=== PATIENT | female | born 1930 | race Caucasian/White ===

== ENCOUNTER 2017-01-12 10:34 | Emergency (ER) | payer MEDICARE, BC ==
[2017-01-12 10:45] VITALS: BP 122/71
--- OUTSIDE RECORDS SUMMARY | 2017-01-12 11:26 | XMS REPORT | Continuity of Care Document ---
:1930 Author Organization [facility] ([facility]) Address [place] [address] Phone [phone] Care Team Providers Name Role Phone Provider, No-Primary Care Primary Care Provider Unavailable Source Comments This disclosure is being made pursuant to the Care Everywhere program, applicable federal and state laws, and may not contain all informaitonavailable regarding this patient.[facility] ([facility]) Active Allergies and Adverse Reactions Not on File Current Medications Not on file Active Problems Not on file Social History Tobacco Use Types Packs/Day Years Used Date Never Assessed Plan of Care Health Maintenance Due Date Last Done Comments Hepatitis B Vaccine (1 of 3 - Primary Series) 1930 Tdap Vaccine 1941 Lipid Disorder Screening 1948 Td Vaccine 1948 Zoster Vaccine 1990 Pneumococcal Vaccine (1 of 2 - PCV13) 1995 Influenza Vaccine: Seasonal (#1) 03/26/2016 Results from Last 3 Months Not on file
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
[2017-01-12 11:55] LABS: Urine Bilirubin Negative (NEGATIVE); Urine Blood Negative /ul (NEGATIVE); Urine Ketone Negative (NEGATIVE); Urine Nitrite Negative (NEGATIVE); Urine Protein Negative (NEGATIVE); Urine Urobilinogen Normal (NORMAL)
[2017-01-12 12:06] LABS: Urine Appearance Slightly Cloudy; Urine Bacteria 2+; Urine Color Yellow; Urine RBC None Seen /hpf (0-5); Urine WBC 0-5 /hpf (0-5)
== END 2017-01-12 12:30 | disposition home or self-care (01) ==
LOC: ER 10:34
DX: S00.91XA Abrasion of unspecified part of head, initial encounter (principal); N30.00 Acute cystitis without hematuria; Z85.820 Personal history of malignant melanoma of skin; W19.XXXA Unspecified fall, initial encounter; Z91.81 History of falling; Y93.01 Activity, walking, marching and hiking; Y92.098 Other place in other non-institutional residence as the place of occurrence of the external cause; I10 Essential (primary) hypertension; E78.5 Hyperlipidemia, unspecified

== ENCOUNTER 2017-03-04 14:28 | Inpatient (IN) | payer MEDICARE, BC ==
[2017-03-04 14:57] LABS: Hematocrit 32.3 % (37.0-47.0); Mean Corpuscular Hemoglobin 30.3 pg (27-31); Mean Corpuscular Hgb Conc 34.1 g/dl (32-36); Mean Platelet Volume 9.4 fl (6.0-9.5); Neutrophil # 7.3 K/mm3 (1.3-6.0); Neutrophil % 81.1 % (42-75.0); Platelet Count 292 K/mm3 (150-450); Red Blood Count 3.63 M/mm3 (4.2-5.4); Red Cell Distribution Width 14.9 % (11.5-14.0)
[2017-03-04 15:20] LABS: Albumin * 3.3 gm/dl (3.4-5.0); BUN/Creatinine Ratio 10.5 (9.0-21.6); Bilirubin, Total 2.2 mg/dL (0.0-1.1); Ca. Corrected For Albumin 8.7 mg/dL (8.4-10.2); Calcium * 8.5 mg/dL (7.9-10.9); Carbon Dioxide 27.3 mmol/L (24-32.6); Potassium 4.3 mmol/L (3.4-4.6); Total Protein 6.6 gm/dL (6.2-8.2)
[2017-03-04] MEDS: PANTOPRAZOLE SODIUM 40 MG in NORMAL SALINE 100 ML IV SCH (17:46)
[2017-03-04] MEDS ORDERED: FUROSEMIDE 10 MG/ML VIAL IV ONE (18:00)
[2017-03-04] MEDS ORDERED: SPIRONOLACTONE 25 MG TABLET PO ONE (18:00)
--- NOTE | 2017-03-04 19:35 | HP ---
Chief Complaint - Chief Complaint Date of Service: 03/04/17 Time of Service: 19:35 Chief Complaint: CHF, weakness History of Present Illness: Lucrecia is an 86 year old female patient of Dr. Proctor who presented to her office today with c/o increasing lower extremity edema, swelling in face, anemia , anxiety and depression, atrial fibrillation, HLD, HTN and OA. Patient indicates she has stopped taking all of her prescribed medications. Also concerned about black tarry stools. Patient has a history of a massive GI bleed in 2014 on coumadin and therefore is not a candidate for anticoagulation. Admission labs show hgb 11.0 (was 14.1 10/05/16). normal wbc eith 81.1% neutrophils. Na+ 122. Patient was directly admitted from pcp office for lower extremity edema, hyponatremia, weakness and anemia. 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; 2010 - right arm - nodular basal cell ca removed; basal cell ca also removed from nose - unsure of year, Cataracts - bilat - , Colonoscopy - 2005 - [facility] - normal; 2014 - [place] - sigmoid diverticulosis, EGD - [place] - 11/2014 clotest negative, mod chronic inflammation and fibrosis; 02/2015 clotest negative, chronic gastritis., T & A - 194, Other - right corn toe removal in 1990 Patient History - Other: None LMP (females 10-50): Menopausal - Family History Mother Family History - Medical: - age 74, Arthritis Children Family History - Medical: Diabetes Type 1, Diabetes Type 2 Brother Family History - Medical: - 3 brothers. One as an infant ; one age 50s from heart problems; one age 60 from colon ca and had a colostomy. Family History - Cardiac/Respiratory: Myocardial Infarction Family History - Cancer: Colon Sister Family History - Medical: - 3 sisters - 2 as infants; 1 due to a ruptured appendix. Brother2 Family History - Medical: Other - 2 living brothers - 1 with history CVA and arthritis; 1 with prostate cancer. Family History - Cardiac/Respiratory: CVA/Stroke Family History - Cancer: Prostate sister2 Family History - Medical: Other - 1 living sister with history breast cancer Family History - Cancer: Breast Aunt Family History - Medical: Other - 2 living aunts with history breast cancer Family History - Cancer: Breast Father Family History - Medical: Family History - Cardiac/Respiratory: Myocardial Infarction - age 73 - Social History Living Situations: long-term Abuse History: No History of abuse Psych History: Hx of Anxiety, Hx of Depression Does anyone smoke in the home?: No Smoking Status: Never smoker Have you smoked in the past 12 months: No Alcohol Use: none Drug Use: none Review Of Systems (GEN) - Review of Systems Generalized/Overall Review: Present: Weakness EENTM: Present: No Symptoms Reported Respiratory: Present: No Symptoms Reported Cardiac: Present: Edema. Absent: Chest Pain, Palpitations Abdominal: Present: Other - black tarry stools Genitourinary: Present: No Symptoms Reported Musculoskeletal: Present: No Symptoms Reported Neurological: Present: No Symptoms Reported Skin: Present: No Symptoms Reported Endocrine: Present: No Symptoms Reported Misc: All systems neg except as marked Allergies/Adverse Reactions: Allergies Allergy/AdvReac Type Severity Reaction Status Date / Time tramadol HCl [From Ultram] AdvReac Mild DIZZINESS, Verified 01/12/17 10:46 NAUSEA Home Medications: HOME MEDICATIONS Furosemide 60 mg PO DAILY 09/22/12 [Last Taken 12/12/14] Multivitamin [Multivitamins] 1 each PO DAILY 09/22/12 [Last Taken 12/12/14] Atorvastatin Calcium [Lipitor] 20 mg PO Q72H 12/13/14 [Last Taken 12/12/14] Acetaminophen [Tylenol] 1 - 2 tab PO QID PRN 02/21/15 [Last Taken Unknown] Calcium Carbonate/Vitamin D3 [Calcium 600 + Vit D 400 Tablet] 1 each PO BID [Last Taken Unknown] Metoprolol Tartrate [Lopressor] 50 mg PO TID 02/21/15 [Last Taken Unknown] Cholecalciferol (Vitamin D3) [Vitamin D] 2,000 unit PO DAILY 01/12/17 [Last Taken Unknown] Omeprazole 20 mg PO DAILY 01/12/17 [Last Taken Unknown] Spironolactone [Aldactone] 25 mg PO DAILY 01/12/17 [Last Taken Unknown] Metoprolol Succinate [Toprol Xl] 50 mg PO BID 03/04/17 [Last Taken Unknown] Exam - Exam Vital Signs: Vital Signs - Last Taken Temp 36.4 C L 03/04/17 18:43 Pulse 72 03/04/17 18:43 Resp 18 03/04/17 18:43 BP 132/91 03/04/17 18:43 Pulse Ox 94 03/04/17 18:43 Constitutional: Present: Alert, Cooperative, Mild distress, Elderly ENT Exam: Present: hearing grossly normal Eye Exam: bilateral eye: normal inspection Neck: Present: supple, normal inspection Breasts: Present: Exam deferred Respiratory: Present: normal breath sounds, no respiratory distress, no accessory muscle use Cardiovascular/Chest: Present: normal peripheral pulses, irregularly irregular. Absent: tachycardia Peripheral Pulses: dorsalis-pedis (R): 2+, dorsalis-pedis (L): 2+, radial (R): 2 +, radial (L): 2+ Abdomen: Present: Normal bowel sounds, soft, nontender, obese /Rectal: Present: Exam deferred Extremity: Present: lower extremity edema - 2+ lower extremity edema bilat, pedal edema, other - bilat lower legs are reddened but not warm to touch Skin Exam: Present: normal color, warm/dry, no cyanosis Diagnostic Studies: Abnormal Lab Results 03/04/17 03/04/17 Range/Units 14:32 14:32 RBC 3.63 L (4.2-5.4) M/mm3 Hgb 11.0 L (12.5-16.0) gm/dL Hct 32.3 L (37.0-47.0) % RDW 14.9 H (11.5-14.0) % Immature Gran % (Auto) 0.70 H (0.001-0.429) % Immature Gran # (Auto) 0.06 H (0.000-0.0310) K/mm3 Neutrophils % 81.1 H (42-75.0) % Lymphocytes % 7.0 L (20-51) % Monocytes % 9.4 H (0.0-9) % Neutrophils # 7.3 H (1.3-6.0) K/mm3 Lymphocytes # 0.6 L (1.5-3.5) k/mm3 Sodium 122 L (132-142) mmol/L Plasma Sodium 122 L (130-142) mmol/L Chloride 88 L (97-106) mmol/L Total Bilirubin 2.2 H (0.0-1.1) mg/dL B-Natriuretic Peptide 2949 H (5-550) pg/mL Albumin 3.3 L (3.4-5.0) gm/dl Laboratory Results WBC 9.0 K/mm3 (4.0-10.5) 03/04/17 14:32 RBC 3.63 M/mm3 (4.2-5.4) L 03/04/17 14:32 Hgb 11.0 gm/dL (12.5-16.0) L 03/04/17 14:32 Hct 32.3 % (37.0-47.0) L 03/04/17 14:32 MCV 89.0 fl (78-100) 03/04/17 14:32 MCH 30.3 pg (27-31) 03/04/17 14:32 MCHC 34.1 g/dl (32-36) 03/04/17 14:32 RDW 14.9 % (11.5-14.0) H 03/04/17 14:32 Plt Count 292 K/mm3 (150-450) 03/04/17 14:32 MPV 9.4 fl (6.0-9.5) 03/04/17 14:32 Immature Gran % (Auto) 0.70 % (0.001-0.429) H 03/04/17 14:32 Immature Gran # (Auto) 0.06 K/mm3 (0.000-0.0310) H 03/04/17 14:32 Neutrophils % 81.1 % (42-75.0) H 03/04/17 14:32 Lymphocytes % 7.0 % (20-51) L 03/04/17 14:32 Monocytes % 9.4 % (0.0-9) H 03/04/17 14:32 Eosinophils % 0.8 % (0.0-3.0) 03/04/17 14:32 Basophils % 1.0 % (0.0-1.0) 03/04/17 14:32 Nucleated RBC % 0.0 k/mm3 (0-1) 03/04/17 14:32 Neutrophils # 7.3 K/mm3 (1.3-6.0) H 03/04/17 14:32 Lymphocytes # 0.6 k/mm3 (1.5-3.5) L 03/04/17 14:32 Monocytes # 0.9 k/mm3 (0.0-1.0) 03/04/17 14:32 Eosinophils # 0.1 k/mm3 (0.0-0.7) 03/04/17 14:32 Absolute Basophils 0.1 k/mm3 (0.0-0.1) 03/04/17 14:32 Sodium 122 mmol/L (132-142) L 03/04/17 14:32 Plasma Sodium 122 mmol/L (130-142) L 03/04/17 14:32 Potassium 4.3 mmol/L (3.4-4.6) 03/04/17 14:32 Chloride 88 mmol/L (97-106) L 03/04/17 14:32 Carbon Dioxide 27.3 mmol/L (24-32.6) 03/04/17 14:32 Anion Gap 11.0 mmol/L (6.8-13.8) 03/04/17 14:32 BUN 8 mg/dL (3-23) 03/04/17 14:32 Creatinine 0.76 mg/dL (0.4-1.4) 03/04/17 14:32 Est GFR (Non-Af Amer) 77 mL/min (60-130) 03/04/17 14:32 BUN/Creatinine Ratio 10.5 (9.0-21.6) 03/04/17 14:32 Random Glucose 82 mg/dL (70-110) 03/04/17 14:32 Calcium 8.5 mg/dL (7.9-10.9) 03/04/17 14:32 Calcium Adj for Albumin 8.7 mg/dL (8.4-10.2) 03/04/17 14:32 Total Bilirubin 2.2 mg/dL (0.0-1.1) H 03/04/17 14:32 AST 30 U/L (0-48) 03/04/17 14:32 ALT 29 U/L (19-67) 03/04/17 14:32 Alkaline Phosphatase 104 U/L (50-170) 03/04/17 14:32 Troponin I 0.034 ng/ml (0.00-0.10) 03/04/17 14:32 B-Natriuretic Peptide 2949 pg/mL (5-550) H 03/04/17 14:32 Total Protein 6.6 gm/dL (6.2-8.2) 03/04/17 14:32 Albumin 3.3 gm/dl (3.4-5.0) L 03/04/17 14:32 Assessment/Plan - Narrative Narrative: hyponatremia - serum osmolarity calculated at 251.42 = WNL - Thus, hypotonic hyponatremia secondary to low effective arterial blood volume (ie: suspected CHF) and aggravated by patient chronic venous insufficeny and the fact that she quit taking her prescribed medications. - IV lasix and PO spironlactone given with already significant diuresis ( greater than 2 liters) - gongora for accurate I&Os - especially given patient's significant weakness - recheck labs in the am. weakness - likely secondary to hyponatremia and deconditioning - ? PT/OT consult. Anemia - has history of massive GI Bleed secondary to coumadin use in 2014 - not currently on an anticoagulants at this time. - heme check stools - recheck labs in am - not not appear to be acute anemia as no diarrhea is present - ? any OTC meds interacting that could cause black tarry stools, such as OTC iron or OTC pepto bismol. - patient unsure, will need to ask daughter in am. Chronic venous insufficiency - aggrevating hyponatremia and lower extremity edema - responding well to iv lasix and po spironlactone. - elevate legs as much as possible - will also add tubigrip to lower extremities to aid in venous return. suspected CHF - likely cause of hyponatremia - responding well to diuretics - ? outpatient echo, if patient is willing. atrial fibrillation - EKG confirms afib - not a candidate for anticoagulation due to prior gi bleed. - monitor for now. Chronic stable medical conditions - anxiety / depression - arthritis - HTN - HLD Code status: DNR VTE: no lovenox due to history of GI bleed and current anemia. GI proph: IV protonix. - Assessment/Plan (1) Hyponatremia Problem: Acute (2) Weakness Problem: Acute (3) Anemia Problem: Acute Qualifiers: Anemia type: unspecified type Qualified Code(s): D64.9 - Anemia, unspecified (4) Venous insufficiency (chronic) (peripheral) Problem: Chronic (5) CHF (congestive heart failure) Problem: Suspected Qualifiers: Congestive heart failure type: diastolic Congestive heart failure chronicity: chronic Qualified Code(s): I50.32 - Chronic diastolic (congestive ) heart failure (6) Anxiety and depression Problem: Chronic (7) Arthritis Problem: Chronic (8) Hypertension Problem: Chronic Qualifiers: Hypertension type: essential hypertension Qualified Code(s): I10 - Essential (primary) hypertension (9) Hyperlipidemia Problem: Chronic Qualifiers: Hyperlipidemia type: unspecified Qualified Code(s): E78.5 - Hyperlipidemia , unspecified (10) Atrial fibrillation Problem: Chronic Qualifiers: Atrial fibrillation type: chronic Qualified Code(s): I48.2 - Chronic atrial fibrillation
[2017-03-05 06:03] LABS: Hematocrit 30.5 % (37.0-47.0); Hemoglobin 10.6 gm/dL (12.5-16.0); Mean Cell Volume 88.2 fl (78-100); Mean Corpuscular Hemoglobin 30.6 pg (27-31); Mean Corpuscular Hgb Conc 34.8 g/dl (32-36); Mean Platelet Volume 9.9 fl (6.0-9.5); Neutrophil # 6.3 K/mm3 (1.3-6.0); Neutrophil % 79.4 % (42-75.0); Platelet Count 264 K/mm3 (150-450); Red Blood Count 3.46 M/mm3 (4.2-5.4); Red Cell Distribution Width 14.9 % (11.5-14.0); White Blood Count 7.9 K/mm3 (4.0-10.5)
[2017-03-05 06:43] LABS: Anion Gap 10.4 mmol/L (6.8-13.8); BUN/Creatinine Ratio 10.8 (9.0-21.6); Bilirubin, Total 2.1 mg/dL (0.0-1.1); Ca. Corrected For Albumin 8.8 mg/dL (8.4-10.2); Calcium * 8.3 mg/dL (7.9-10.9); Carbon Dioxide 29.1 mmol/L (24-32.6); Potassium 3.5 mmol/L (3.4-4.6); Total Protein 5.9 gm/dL (6.2-8.2)
[2017-03-05] MEDS: PANTOPRAZOLE SODIUM 40 MG in NORMAL SALINE 100 ML IV SCH (09:44)
[2017-03-05] MEDS: PSYLLIUM SEED 1 PACKET PACKET PO SCH (11:26)
[2017-03-05] MEDS ORDERED: FUROSEMIDE 10 MG/ML VIAL IV ONE (12:00)
[2017-03-05] MEDS ORDERED: SPIRONOLACTONE 25 MG TABLET PO ONE (12:00)
--- NOTE | 2017-03-05 15:23 | PN ---
Subjective - Date and Time Seen Date: 03/05/17 Time: 12:00 Subjective Narrative: C/O generalized aches and pains. Has difficulty in ambulating with PT and walker. Intermittent confusion noted by the nurses. Objective - Review of Systems Generalized/Overall Review: Reports: Weakness Respiratory: Reports: Shortness of Breath Cardiac: Reports: Edema Neurological: Reports: Anxiety, Depressed - Vitals Vitals: Vital Signs Temp 37 C 03/05/17 14:16 Pulse 91 03/05/17 14:16 Resp 20 03/05/17 14:16 BP 100/48 03/05/17 14:16 Pulse Ox 93 03/05/17 14:16 - Abnormal Lab Findings Abnormal Lab Findings: Laboratory Tests 10/05/16 03/04/17 03/05/17 10:57 14:32 05:20 WBC 8.2 9.0 7.9 Hgb 14.1 11.0 L 10.6 L Hct 42.0 32.3 L 30.5 L Plt Count 257 292 264 03/04/17 03/05/17 14:32 05:20 Plasma Sodium 122 L 125 L Potassium 4.3 3.5 Chloride 88 L 89 L Carbon Dioxide 27.3 29.1 BUN 8 7 Creatinine 0.76 0.65 Est GFR (Non-Af Amer) 77 92 Total Protein 6.6 5.9 L Albumin 3.3 L 3.0 L 03/04/17 03/05/17 17:37 05:05 Weight 88 kg 86.6 kg - Exam Constitutional: Present: Elderly, Obese - alert and grossly oriented. ENT Exam: Present: hard of hearing, moist mucous membranes Respiratory: Present: normal breath sounds - few crackles at bases Cardiovascular/Chest: Present: systolic murmur - at LSB, irregularly irregular Abdomen: Present: Normal bowel sounds, soft, nontender, nondistended /Rectal: Present: Exam deferred Extremity: Present: lower extremity edema - 2+ , vascular stasis Skin Exam: Present: warm/dry, pallor Neurologic: Present: depressed affect Cauti Physician Documentation - Urinary Catheter Management Urethral (Rojas) Urethral Indwelling: Yes Reason for Continuing Indwelling Catheter: Measure accurate output Date of Insertion: 03/04/17 Time of Insertion: 17:31 Assessment/Plan Plan Narrative: 1. Acute on chronic HFpEF: Patient diuresed well on furosemide 60 mg IV/spironolactone 25 mg PO with negative balance of 4 L. Patient was given furosemide 40 mg IV and spironolactone 50 mg PO today. Obtain echocardiogram and check electrolytes on 03/06/2017. 2. Anemia: H&H dropped from 14.0/42.0[10/12] to 11.0/32.3[03/04/17]. Patient is giving a H/O black tarry stools. Her omeprazole was decreased from 40 mg to 20 mg a few weeks ago. Discuss with family regarding transfusion and no further workup. Patient did have an EGD/colonoscopy in 2014[ EGD showing duodenitis and antritis ; colonoscopy showing diverticulosis]. Patient currently on pantoprazole 40 mg IV daily. 3. Chronic A. fib: Patient was monitored overnight with heart rate between 60s to 70s per minute and is stable telemetry; was DC'd this morning. Not a candidate for anticoagulation given her history of GI bleed in 2014 and a drop in hemoglobin noticed during this admission. 4. DVT prophylaxis; Moderate risk for DVT; waiting for Hemoccult stools; no Lovenox; patient has significant vascular stasis on her lower extremities. 5. Hypervolemic hyponatremia: Patient presented with decreased sodium and chloride which are gradually improving with diuresis. Continue to monitor electrolytes.
[2017-03-05] MEDS: ACETAMINOPHEN 325 MG TABLET PO SCH ×2 (17:29→20:37)
[2017-03-06 05:42] LABS: Albumin * 3.3 gm/dl (3.4-5.0); Anion Gap 9.4 mmol/L (6.8-13.8); BUN/Creatinine Ratio 7.9 (9.0-21.6); Bilirubin, Total 2.8 mg/dL (0.0-1.1); Ca. Corrected For Albumin 8.9 mg/dL (8.4-10.2); Calcium * 8.7 mg/dL (7.9-10.9); Carbon Dioxide 30.3 mmol/L (24-32.6); Potassium 3.7 mmol/L (3.4-4.6); Total Protein 6.5 gm/dL (6.2-8.2)
[2017-03-06] MEDS: PANTOPRAZOLE SODIUM 40 MG in NORMAL SALINE 100 ML IV SCH (08:44)
[2017-03-06] MEDS: ACETAMINOPHEN 325 MG TABLET PO SCH ×4 (08:45→21:48)
[2017-03-06] MEDS: PSYLLIUM SEED 1 PACKET PACKET PO SCH (08:46)
--- NOTE | 2017-03-06 14:04 | PN ---
Subjective - Date and Time Seen Date: 03/06/17 Time: 13:58 Subjective Narrative: Patient walking to the bathroom with walker; placed on scheduled Tylenol 650 mg with meals and at bedtime. Occasional confusion. Convinced she is having black tarry stools. Aide informed me she had brown stools. Patient was heme- negative. No chest pain/SOB. Objective - Review of Systems Generalized/Overall Review: Reports: Weakness Respiratory: Denies: Shortness of Breath Cardiac: Denies: Chest Pain, Edema Musculoskeletal Complaints: Reports: Joint Pain - Vitals Vitals: Vital Signs Temp 36.6 C 03/06/17 13:00 Pulse 91 03/06/17 13:00 Resp 20 03/06/17 13:00 BP 129/76 03/06/17 13:00 Pulse Ox 96 03/06/17 13:00 - Abnormal Lab Findings Abnormal Lab Findings: Laboratory Tests 03/06/17 05:15 Plasma Sodium 119 L* Potassium 3.7 Chloride 83 L Carbon Dioxide 30.3 BUN 5 Creatinine 0.63 Est GFR (Non-Af Amer) 95 Random Glucose 112 H Calcium Adj for Albumin 8.9 Total Bilirubin 2.8 H AST 27 ALT 24 Alkaline Phosphatase 103 Total Protein 6.5 Albumin 3.3 L 03/05/17 03/05/17 19:42 22:14 Stool Occult Blood Negative Negative 03/04/17 03/06/17 17:37 04:50 Weight 88 kg 81.4 kg I/O in last 24 hrs= 2960 ml. - Exam Constitutional: Present: Elderly, Overweight - with occassional confusion, in NAD ENT Exam: Present: hearing grossly normal, moist mucous membranes Neck: Present: supple, trachea midline Respiratory: Present: normal breath sounds - with crackles at the bases. Cardiovascular/Chest: Present: systolic murmur, irregularly irregular Abdomen: Present: Normal bowel sounds, soft, nontender, obese Extremity: Present: normal inspection, other - Trace edema, vascular stasis decreased Skin Exam: Present: warm/dry, pallor Neurologic: Present: no motor/sensory deficits Cauti Physician Documentation - Urinary Catheter Management Urethral (Rojas) Urethral Indwelling: Yes Date of Insertion: 03/04/17 Time of Insertion: 17:31 Date of Removal: 03/05/17 Time of Removal: 17:31 Assessment/Plan Plan Narrative: 1. Acute on chronic HFpEF: Patient diuresed well . Patient lost approximately 5 kg since admission. Echo done today : Mild LVH with EF 60-65%, mod to severe ROC, mod MR, RVSP 61 mm Hg , mod TR, mod AI. 2. Anemia: H&H dropped from 14.0/42.0[10/12] to 11.0/32.3[03/04/17]. Patient is giving a H/O black tarry stools. Her omeprazole was decreased from 40 mg to 20 mg a few weeks ago. Discuss with family regarding transfusion and no further workup. Patient did have an EGD/colonoscopy in 2014[ EGD showing duodenitis and antritis ; colonoscopy showing diverticulosis]. Patient given pantoprazole 40 mg IV daily 3 days. Change to pantoprazole PO daily from 03/07/17. 3. Chronic A. fib: Patient was monitored overnight with heart rate between 60s to 70s per minute and is stable telemetry; was DC'd this morning. Not a candidate for anticoagulation given her history of GI bleed in 2014 and a drop in hemoglobin noticed during this admission. 4. DVT prophylaxis; Moderate risk for DVT; waiting for Hemoccult stools; no Lovenox; patient has significant vascular stasis on her lower extremities. 5. Hypervolemic hyponatremia: Patient presented with decreased sodium and chloride which are improved initially with diuresis. Na+ dropped to 119 meq/dl today. Fluid restrict to 1200 mL in 24 hours. Check electrolytes on 03/07/17.
[2017-03-07 06:13] LABS: Hematocrit 33.9 % (37.0-47.0); Hemoglobin 11.9 gm/dL (12.5-16.0); Mean Cell Volume 86.9 fl (78-100); Mean Corpuscular Hemoglobin 30.5 pg (27-31); Mean Corpuscular Hgb Conc 35.1 g/dl (32-36); Mean Platelet Volume 9.5 fl (6.0-9.5); Neutrophil # 7.4 K/mm3 (1.3-6.0); Neutrophil % 80.5 % (42-75.0); Platelet Count 318 K/mm3 (150-450); Red Cell Distribution Width 15.1 % (11.5-14.0); White Blood Count 9.2 K/mm3 (4.0-10.5)
[2017-03-07 06:23] LABS: Albumin * 3.4 gm/dl (3.4-5.0); Anion Gap 11.3 mmol/L (6.8-13.8); BUN/Creatinine Ratio 8.2 (9.0-21.6); Bilirubin, Total 3.3 mg/dL (0.0-1.1); Ca. Corrected For Albumin 9.2 mg/dL (8.4-10.2); Carbon Dioxide 27.6 mmol/L (24-32.6); Potassium 3.9 mmol/L (3.4-4.6); Total Protein 6.8 gm/dL (6.2-8.2)
[2017-03-07] MEDS: PANTOPRAZOLE SODIUM 40 MG TABLET.EC PO SCH (07:24)
[2017-03-07] MEDS: PSYLLIUM SEED 1 PACKET PACKET PO SCH (09:44)
[2017-03-07] MEDS: ACETAMINOPHEN 325 MG TABLET PO SCH ×4 (09:44→20:08)
[2017-03-07] MEDS ORDERED: LISINOPRIL 2.5 MG TABLET PO SCH (09:45)
--- NOTE | 2017-03-07 11:11 | ECHO ---
This report is available in the EMR
[2017-03-07] MEDS ORDERED: FUROSEMIDE 10 MG/ML VIAL IV STA (15:03)
[2017-03-07] MEDS ORDERED: SPIRONOLACTONE 25 MG TABLET PO STA (15:04)
--- NOTE | 2017-03-07 15:08 | PN ---
Subjective - Date and Time Seen Date: 03/07/17 Time: 15:07 Subjective Narrative: patient got confused last night- and made several phone calls last night. Daughter is requesting form to be taken off at 8 PM today. Ambulating more with PT. Requiring one assist. Patient does want to go back to [place]. Objective - Review of Systems Generalized/Overall Review: Reports: Weakness Respiratory: Reports: Shortness of Breath Cardiac: Reports: Edema. Denies: Chest Pain Genitourinary Symptoms: Reports: Incontinent - Vitals Vitals: Vital Signs Temp 37.1 C 03/07/17 14:41 Pulse 82 03/07/17 14:41 Resp 18 03/07/17 14:41 BP 102/63 03/07/17 14:41 Pulse Ox 95 03/07/17 14:41 - Abnormal Lab Findings Abnormal Lab Findings: Laboratory Tests 03/07/17 06:04 WBC 9.2 Hgb 11.9 L Hct 33.9 L Plt Count 318 03/07/17 06:04 Plasma Sodium 122 L Potassium 3.9 Chloride 87 L Carbon Dioxide 27.6 BUN 5 Creatinine 0.61 Est GFR (Non-Af Amer) 99 Random Glucose 113 H Calcium Adj for Albumin 9.2 Total Bilirubin 3.3 H AST 28 ALT 25 Alkaline Phosphatase 108 Total Protein 6.8 Albumin 3.4 03/04/17 03/08/17 17:37 04:58 Weight 88 kg 79.6 kg - Exam Constitutional: Present: Elderly - No distress, alert, cooperative. ENT Exam: Present: hearing grossly normal, moist mucous membranes Respiratory: Present: lungs clear - With few crackles at the bases. Absent: no accessory muscle use Cardiovascular/Chest: Present: systolic murmur, irregularly irregular Abdomen: Present: Normal bowel sounds, soft, nontender, obese Extremity: Present: normal inspection - 1+ edema Skin Exam: Present: warm/dry, pallor Cauti Physician Documentation - Urinary Catheter Management Urethral (Rojas) Urethral Indwelling: Yes Date of Insertion: 03/04/17 Time of Insertion: 17:31 Date of Removal: 03/05/17 Time of Removal: 17:31 Assessment/Plan Plan Narrative: 1. Acute on chronic HFpEF: Echo findings : Mild LVH with EF 60-65%, mod to severe ROC, mod MR, RVSP 61 mm Hg, mod TR, mod AI. Patient started on lisinopril 2.5 mg PO in AM and metoprolol ER 12.5 mg in PM. 2. Anemia: H&H dropped from 14.0/42.0[10/12] to 11.0/32.3[03/04/17]. Her omeprazole was decreased from 40 mg to 20 mg a few weeks ago. Patient did have an EGD/ colonoscopy in 2014[ EGD showing duodenitis and antritis; colonoscopy showing diverticulosis]. Patient given pantoprazole 40 mg IV daily 3 days. Changed to pantoprazole PO daily from 03/07/17. Patient heme-negative in hospital. Discussed with family-will transfuse if needed; no further workup. 3. Chronic A. fib: Rhythm between 70-80 during first 24 hours after telemetry. 4. DVT prophylaxis; Low risk; heme-negative. Patient ambulatory. 5. Hypervolemic hyponatremia: Patient presented with decreased sodium and chloride which are improved initially with diuresis. Monitor electrolytes.
[2017-03-07] MEDS: METOPROLOL SUCCINATE 25 MG TABLET.SA PO SCH (20:08)
[2017-03-08 06:26] LABS: BUN/Creatinine Ratio 12.5 (9.0-21.6); Ca. Corrected For Albumin 9.1 mg/dL (8.4-10.2); Calcium * 8.6 mg/dL (7.9-10.9); Carbon Dioxide 30.6 mmol/L (24-32.6); Potassium 3.6 mmol/L (3.4-4.6)
[2017-03-08] MEDS: PANTOPRAZOLE SODIUM 40 MG TABLET.EC PO SCH (09:42)
[2017-03-08] MEDS: ACETAMINOPHEN 325 MG TABLET PO SCH ×4 (09:42→20:26)
[2017-03-08] MEDS: SPIRONOLACTONE 25 MG TABLET PO SCH (09:42)
[2017-03-08] MEDS: PSYLLIUM SEED 1 PACKET PACKET PO SCH (09:42)
[2017-03-08] MEDS: FUROSEMIDE 10 MG/ML VIAL IV SCH (09:51)
--- NOTE | 2017-03-08 15:02 | PN ---
Subjective - Date and Time Seen Date: 03/08/17 Time: 10:00 Subjective Narrative: Patient slowly but gradually improving. Occasional confusion most likely secondary to sundowning/hyponatremia. Objective - Review of Systems Generalized/Overall Review: Reports: Weakness Respiratory: Reports: Shortness of Breath Cardiac: Reports: Edema. Denies: Chest Pain - Vitals Vitals: Last Vital Signs Temp 36.4 C L 03/08/17 09:56 Pulse 76 03/08/17 09:56 Resp 18 03/08/17 09:56 BP 106/57 03/08/17 09:56 Pulse Ox 97 03/08/17 09:56 - Abnormal Lab Findings Abnormal Lab Findings: Laboratory Tests 03/08/17 06:05 Plasma Sodium 127 L Potassium 3.6 Chloride 91 L Carbon Dioxide 30.6 BUN 8 D Creatinine 0.64 Est GFR (Non-Af Amer) 94 Random Glucose 96 Calcium Adj for Albumin 9.1 Total Bilirubin 2.0 H AST 24 ALT 23 Alkaline Phosphatase 91 Total Protein 6.0 L Albumin 3.0 L - Exam Constitutional: Present: Elderly - alert, cooperative, in NAD. ENT Exam: Present: hearing grossly normal, moist mucous membranes Neck: Present: supple, trachea midline Respiratory: Present: lungs clear - few crackles at base.. Absent: no accessory muscle use Cardiovascular/Chest: Present: systolic murmur, irregularly irregular Abdomen: Present: Normal bowel sounds, soft, nontender, obese Extremity: Present: normal inspection - ttrace to 1+ edema. Skin Exam: Present: warm/dry, pallor Cauti Physician Documentation - Urinary Catheter Management Urethral (Orjas) Urethral Indwelling: Yes Date of Insertion: 03/04/17 Time of Insertion: 17:31 Date of Removal: 03/05/17 Time of Removal: 17:31 Assessment/Plan Plan Narrative: 1. Acute on chronic HFpEF: Echo findings : Mild LVH with EF 60-65%, mod to severe ROC, mod MR, RVSP 61 mm Hg, mod TR, mod AI. lisinopril 2.5 mg d/chayito as BP was 100/60; continue metoprolol ER 12.5 mg in PM. 2. Anemia: Stable- H&H dropped from 14.0/42.0[10/12] to 11.0/32.3[03/04/17]. Her omeprazole was decreased from 40 mg to 20 mg a few weeks ago. Patient did have an EGD/colonoscopy in 2014[ EGD showing duodenitis and antritis; colonoscopy showing diverticulosis]. Patient given pantoprazole 40 mg IV daily 3 days. Changed to pantoprazole PO daily from 03/07/17. Patient heme-negative in hospital. Discussed with family-will transfuse if needed; no further workup. 3. Chronic A. fib: Rhythm between 70-80 during first 24 hours after telemetry. 4. DVT prophylaxis; Low risk; heme-negative. Patient ambulatory. 5. Hypervolemic hyponatremia: Patient presented with decreased sodium and chloride which are improved initially with diuresis. Monitor electrolytes. Improving with fluid restriction initially 1500 mL; now 1200 mL, Na+ 127. Check electrolytes on . 6. Confusion: Gradually improving. Most likely secondary to sundowning/hyponatremia. Patient to be discharged most likely on 03/11/17 to the [facility] as she will require extra care.
[2017-03-08] MEDS: METOPROLOL SUCCINATE 25 MG TABLET.SA PO SCH (20:27)
[2017-03-09] MEDS: PANTOPRAZOLE SODIUM 40 MG TABLET.EC PO SCH (06:54)
[2017-03-09] MEDS: ACETAMINOPHEN 325 MG TABLET PO SCH ×4 (08:18→20:26)
[2017-03-09] MEDS: SPIRONOLACTONE 25 MG TABLET PO SCH (08:19)
[2017-03-09] MEDS: PSYLLIUM SEED 1 PACKET PACKET PO SCH (08:21)
[2017-03-09] MEDS: FUROSEMIDE 10 MG/ML VIAL IV SCH (09:42)
--- NOTE | 2017-03-09 20:11 | PN ---
<Kay Leonardo - Last Filed: 03/09/17 20:12> Subjective - Date and Time Seen Date: 03/09/17 Time: 20:10 Subjective Narrative: slowly improving. still confused at night but last night was better than the previous night. Objective - Review of Systems Generalized/Overall Review: Reports: Weakness EENTM: Reports: No Symptoms Reported Respiratory: Reports: Shortness of Breath Cardiac: Reports: Edema Abdominal: Reports: No Symptoms Reported Genitourinary Symptoms: Reports: No Symptoms Reported Musculoskeletal Complaints: Reports: No Symptoms Reported Neurological: Reports: No Symptoms Reported Skin: Reports: No Symptoms Reported Endocrine: Reports: No Symptoms Reported Misc: All systems neg except as marked - Vitals Vitals: Last Vital Signs Temp 36.7 C 03/09/17 16:16 Pulse 87 03/09/17 16:16 Resp 18 03/09/17 16:16 BP 126/79 03/09/17 16:16 Pulse Ox 96 03/09/17 16:16 - Abnormal Lab Findings Abnormal Lab Findings: Abnormal Lab Results 03/09/17 Range/Units 10:00 Stool Occult Blood Positive H - Exam Constitutional: Present: Cooperative, No distress Neck: Present: supple Breasts: Present: Exam deferred Respiratory: Present: lungs clear - few scattered crackles in the bases bilat Cardiovascular/Chest: Present: normal peripheral pulses, regular rate, rhythm Abdomen: Present: soft, nontender, nondistended /Rectal: Present: Exam deferred Extremity: Present: non-tender, lower extremity edema - trace to +1 lower extremity edema bilat Skin Exam: Present: warm/dry, no cyanosis, pallor Cauti Physician Documentation - Urinary Catheter Management Urethral (Rojas) Urethral Indwelling: Yes Date of Insertion: 03/04/17 Time of Insertion: 17:31 Date of Removal: 03/05/17 Time of Removal: 17:31 Assessment/Plan Plan Narrative: 1. Acute on chronic HFpEF: - Echo findings : Mild LVH with EF 60-65%, mod to severe ROC, mod MR, RVSP 61 mm Hg, mod TR, mod AI. - lisinopril 2.5 mg stopped as BP low - continue metoprolol ER 12.5 mg in PM. 2. Anemia: - Stable- H&H dropped from 14.0/42.0[10/12] to 11.0/32.3[03/04/17]. - omeprazole was decreased from 40 mg to 20 mg a few weeks ago. - Patient did have an EGD/colonoscopy in 2014[ EGD showing duodenitis and antritis; colonoscopy showing diverticulosis]. - given pantoprazole 40 mg IV daily 3 days. - Changed to pantoprazole PO daily from 03/07/17. - 2 heme negative stools and one positive stool in the hospital - Dr Proctor Discussed with family previously -will transfuse if needed; no further workup. 3. Chronic A. fib: - Rhythm between 70-80 during first 24 hours after telemetry. 4. Hypervolemic hyponatremia: - presented with decreased sodium and chloride which are improved initially with diuresis. - Monitor labs. - improving with fluid restriction - Na+ 127. - Check labs on 03/10/17. 5. Confusion: - Gradually improving. - likely secondary to sundowning/hyponatremia. Patient to be discharged most likely on 03/11/17 to the [facility] as she will require extra care. - Problems/Diagnosis (1) Hyponatremia Problem: Acute (2) Weakness Problem: Acute (3) Anemia Problem: Acute QualifierTitle: Anemia type: unspecified type Qualified Code(s): D64.9 - Anemia, unspecified (4) Venous insufficiency (chronic) (peripheral) Problem: Chronic (5) CHF (congestive heart failure) Problem: Suspected QualifierTitle: Congestive heart failure type: diastolic Congestive heart failure chronicity: chronic Qualified Code(s): I50.32 - Chronic diastolic (congestive) heart failure (6) Anxiety and depression Problem: Chronic (7) Arthritis Problem: Chronic (8) Hypertension Problem: Chronic QualifierTitle: Hypertension type: essential hypertension Qualified Code( s): I10 - Essential (primary) hypertension (9) Hyperlipidemia Problem: Chronic QualifierTitle: Hyperlipidemia type: unspecified Qualified Code(s): E78.5 - Hyperlipidemia, unspecified (10) Atrial fibrillation Problem: Chronic QualifierTitle: Atrial fibrillation type: chronic Qualified Code(s): I48.2 - Chronic atrial fibrillation <Kraig Ball - Last Filed: 03/09/17 22:55> Subjective Subjective Narrative: I examined the patient, agree with the assessment and plan. I directed all of our nurse practitioner hospitalist care for this patient. Objective - Vitals Vitals: Last Vital Signs Temp 36.7 C 03/09/17 16:16 Pulse 83 03/09/17 20:26 Resp 18 03/09/17 16:16 BP 139/79 03/09/17 20:26 Pulse Ox 96 03/09/17 16:16 - Abnormal Lab Findings Abnormal Lab Findings: Abnormal Lab Results 03/09/17 Range/Units 10:00 Stool Occult Blood Positive H
[2017-03-09] MEDS: METOPROLOL SUCCINATE 25 MG TABLET.SA PO SCH (20:26)
--- NOTE | 2017-03-10 05:44 | PN ---
<Kay Leonardo - Last Filed: 03/10/17 05:40> Subjective - Date and Time Seen Date: 03/10/17 Time: 05:40 Subjective Narrative: when asked how she is doing, pt states, "I don't know." Confused. Getting up to bedside commode. Objective - Review of Systems Generalized/Overall Review: Reports: Weakness EENTM: Reports: No Symptoms Reported Respiratory: Reports: No Symptoms Reported Cardiac: Reports: Edema Abdominal: Reports: No Symptoms Reported Genitourinary Symptoms: Reports: No Symptoms Reported Musculoskeletal Complaints: Reports: No Symptoms Reported Neurological: Reports: No Symptoms Reported Skin: Reports: No Symptoms Reported Endocrine: Reports: No Symptoms Reported Misc: All systems neg except as marked - Vitals Vitals: Last Vital Signs Temp 36.4 C L 03/10/17 00:15 Pulse 88 03/10/17 00:15 Resp 20 03/10/17 00:15 BP 147/81 03/10/17 00:15 Pulse Ox 94 03/10/17 00:15 - Abnormal Lab Findings Abnormal Lab Findings: Abnormal Lab Results 03/09/17 Range/Units 10:00 Stool Occult Blood Positive H - Exam Constitutional: Present: Cooperative, No distress, Elderly ENT Exam: Present: hard of hearing Neck: Present: supple Breasts: Present: Exam deferred Respiratory: Present: normal breath sounds, no respiratory distress, no accessory muscle use Cardiovascular/Chest: Present: normal peripheral pulses, regular rate, rhythm Abdomen: Present: soft, nontender, nondistended /Rectal: Present: Exam deferred Extremity: Present: no calf tenderness, lower extremity edema - trace to +1 Lower extremity edema bilat Skin Exam: Present: warm/dry, no cyanosis, pallor Cauti Physician Documentation - Urinary Catheter Management Urethral (Rojas) Urethral Indwelling: No Date of Insertion: 03/04/17 Time of Insertion: 17:31 Date of Removal: 03/05/17 Time of Removal: 17:31 Assessment/Plan Plan Narrative: 1. Acute on chronic HFpEF: - Echo findings : Mild LVH with EF 60-65%, mod to severe ROC, mod MR, RVSP 61 mm Hg, mod TR, mod AI. - lisinopril 2.5 mg stopped as BP low - continue metoprolol ER 12.5 mg in PM. - weight continues to decrease - continue Lasix 40 mg IV daily per Dr Proctor's order 2. Anemia: - Stable- H&H dropped from 14.0/42.0[10/12] to 11.0/32.3[03/04/17]. - omeprazole was decreased from 40 mg to 20 mg a few weeks ago. - Patient did have an EGD/colonoscopy in 2014[ EGD showing duodenitis and antritis; colonoscopy showing diverticulosis]. - given pantoprazole 40 mg IV daily 3 days. - Changed to pantoprazole PO daily from 03/07/17. - 2 heme negative stools and one positive stool in the hospital - recheck H/H this am. - Dr Proctor Discussed with family previously -will transfuse if needed; no further workup. 3. Chronic A. fib: - Rhythm between 70-80 during first 24 hours after telemetry. 4. Hypervolemic hyponatremia: - presented with decreased sodium and chloride which are improved initially with diuresis. - Monitor labs. - improving with fluid restriction - Na+ 127. - Check labs on 03/10/17. 5. Confusion: - Gradually improving. - likely secondary to sundowning/hyponatremia. Patient to be discharged most likely on 03/11/17 to the [facility] as she will require extra care. - Problems/Diagnosis (1) Hyponatremia Problem: Acute (2) Weakness Problem: Acute (3) Anemia Problem: Acute QualifierTitle: Anemia type: unspecified type Qualified Code(s): D64.9 - Anemia, unspecified (4) Venous insufficiency (chronic) (peripheral) Problem: Chronic (5) CHF (congestive heart failure) Problem: Suspected QualifierTitle: Congestive heart failure type: diastolic Congestive heart failure chronicity: chronic Qualified Code(s): I50.32 - Chronic diastolic (congestive) heart failure (6) Anxiety and depression Problem: Chronic (7) Arthritis Problem: Chronic (8) Hypertension Problem: Chronic QualifierTitle: Hypertension type: essential hypertension Qualified Code( s): I10 - Essential (primary) hypertension (9) Hyperlipidemia Problem: Chronic QualifierTitle: Hyperlipidemia type: unspecified Qualified Code(s): E78.5 - Hyperlipidemia, unspecified (10) Atrial fibrillation Problem: Chronic QualifierTitle: Atrial fibrillation type: chronic Qualified Code(s): I48.2 - Chronic atrial fibrillation <Kraig Ball - Last Filed: 03/10/17 08:52> Subjective Subjective Narrative: Patient stable, but confused. I directed all of our nurse practitioner hospitalist care for this patient. Objective - Vitals Vitals: Last Vital Signs Temp 37 C 03/10/17 06:22 Pulse 81 03/10/17 06:22 Resp 18 03/10/17 06:22 BP 125/70 03/10/17 06:22 Pulse Ox 92 03/10/17 06:22 - Abnormal Lab Findings Abnormal Lab Findings: Abnormal Lab Results 03/09/17 03/10/17 03/10/17 Range/Units 10:00 05:45 05:45 Hgb 12.0 L (12.5-16.0) gm/dL Hct 35.9 L (37.0-47.0) % Chloride 96 L (97-106) mmol/L Total Bilirubin 1.7 H (0.0-1.1) mg/dL Albumin 3.2 L (3.4-5.0) gm/dl Stool Occult Blood Positive H
[2017-03-10 06:15] LABS: Hematocrit 35.9 % (37.0-47.0)
[2017-03-10 06:34] LABS: Albumin * 3.2 gm/dl (3.4-5.0); Anion Gap 9.4 mmol/L (6.8-13.8); BUN/Creatinine Ratio 17.2 (9.0-21.6); Bilirubin, Total 1.7 mg/dL (0.0-1.1); Ca. Corrected For Albumin 9.3 mg/dL (8.4-10.2); Carbon Dioxide 32.4 mmol/L (24-32.6); Potassium 3.8 mmol/L (3.4-4.6); Total Protein 6.5 gm/dL (6.2-8.2)
[2017-03-10] MEDS: PANTOPRAZOLE SODIUM 40 MG TABLET.EC PO SCH (06:59)
[2017-03-10] MEDS: ACETAMINOPHEN 325 MG TABLET PO SCH ×4 (09:05→20:22)
[2017-03-10] MEDS: SPIRONOLACTONE 25 MG TABLET PO SCH (09:06)
[2017-03-10] MEDS: FUROSEMIDE 10 MG/ML VIAL IV SCH (09:08)
[2017-03-10] MEDS: PSYLLIUM SEED 1 PACKET PACKET PO SCH (09:09)
[2017-03-10] MEDS: METOPROLOL SUCCINATE 25 MG TABLET.SA PO SCH (20:22)
[2017-03-11 07:00] VITALS: BP 137/79
[2017-03-11] MEDS: PANTOPRAZOLE SODIUM 40 MG TABLET.EC PO SCH (07:55)
[2017-03-11] MEDS: ACETAMINOPHEN 325 MG TABLET PO SCH (09:23)
[2017-03-11] MEDS: PSYLLIUM SEED 1 PACKET PACKET PO SCH (09:23)
[2017-03-11] MEDS: SPIRONOLACTONE 25 MG TABLET PO SCH (09:23)
[2017-03-11] MEDS: FUROSEMIDE 10 MG/ML VIAL IV SCH (09:24)
--- NOTE | 2017-03-11 11:04 | DS ---
(1) hyponatremia, hypochloremia due to CHF Problem: Acute (2) acute on chronic HFpEF Problem: Acute (3) Anemia Problem: Acute Qualifiers: Anemia type: unspecified type Qualified Code(s): D64.9 - Anemia, unspecified (4) Atrial fibrillation Problem: Chronic Qualifiers: Atrial fibrillation type: chronic Qualified Code(s): I48.2 - Chronic atrial fibrillation (5) Osteoarthritis Problem: Acute Qualifiers: Osteoarthritis location: multiple joints Osteoarthritis type: primary Qualified Code(s): M15.0 - Primary generalized (osteo)arthritis (6) Hyperlipidemia Problem: Chronic Qualifiers: Hyperlipidemia type: unspecified Qualified Code(s): E78.5 - Hyperlipidemia , unspecified Description of Stay: DATE OF ADMISSION: 03/04/2017. DATE OF DISCHARGE: 03/11/2017. DIAGNOSTICS: 2-D ECHO 03/04/2017. DISCHARGE SUMMARY: Lucrecia Davies is a 86-year-old WF with a H/O chronic Afib[ not on anticoagulation due to GI bleed in 2014], OA, anemia, anxiety and depression who came to the office due to swelling in her lower extremities, vascular stasis and SOB as she stopped taking her meds [furosemide, metoprolol ER] as she was tired of going to the bathroom as she has a H/o of incontinence. Her clinical exam are more consistent with right-sided CHF. Echo in 2009 showed normal EF. Patient was admitted with acute on chronic HFpEF, mild confusion, a drop in H&H from 14/42[11/2016] to 11.0/32.3[03/04/2017] and hyponatremia/hypochloremia[ 119/ 83]. Patient was given diuretics and placed on fluid restriction with gradual improvement in her electrolytes and mentation. She did undergo an echo with following findings : Mild LVH with EF 60-65%, mod to severe ROC, mod MR, RVSP 61 mm Hg, mod TR, mod AI. She was started on beta blockers along with diuretics. She was also heme positive but after discussion with the family decided to place her on a PPI and agreed that no testing would be done. Electrolytes and H&H was stable at the time of discharge. Weight decreased from 81.4 kg to 74.5 kg. Condition stable at the time of discharge. Procedures Performed: none Results and Findings: Laboratory Tests 10/05/16 03/04/17 03/10/17 10:57 14:32 05:45 WBC 8.2 9.0 Hgb 14.1 11.0 L 12.0 L Hct 42.0 32.3 L 35.9 L Plt Count 257 292 03/04/17 03/06/17 03/10/17 14:32 05:15 05:45 Plasma Sodium 122 L 119 L* 134 Potassium 4.3 3.7 3.8 Chloride 88 L 83 L 96 L Carbon Dioxide 27.3 30.3 32.4 BUN 8 5 11 Creatinine 0.76 0.63 0.64 Est GFR (Non-Af Amer) 77 95 94 Random Glucose 82 112 H 92 Calcium Adj for Albumin 8.7 8.9 9.3 Total Bilirubin 2.2 H 2.8 H 1.7 H AST 30 27 26 ALT 29 24 25 Alkaline Phosphatase 104 103 100 Total Protein 6.6 6.5 6.5 Albumin 3.3 L 3.3 L 3.2 L 03/04/17 03/04/17 14:32 14:32 Troponin I 0.034 B-Natriuretic Peptide 2949 H Laboratory Tests 03/05/17 03/09/17 19:42 10:00 Stool Occult Blood Negative Positive H CXR: 03/04/2017: Impression: 1. Cardiomegaly. 2. Abnormal bilateral shoulder osseous findings. 3. No pleural effusion/pneumothorax/no focal consolidation. Discharge Disposition: [facility] Disposition: [facility] Condition: Undetermined Discharge Activity: Activity as tolerated - ambulate with walker at all times Discharge Diet: Low salt, High Fiber Referrals: China Proctor MD [Primary Care Provider] - Problem Oriented Discharge Instructions to Patient/Family: Heart Failure, Easy- to-Read Additional Patient Instructions (free text): From [facility], please call and fax discharge information to them. TCM appt. Appt with Dr. Whitlock in 1 week Follow up with Dr. Proctor 03/18 at 2:00. Scheduled voiding every 3 hrs while awake and once at night. [facility] new, please call and fax them. Prescriptions (Any new or edited meds): Acetaminophen [Tylenol Arthritis] 650 mg PO QID #120 tablet.er Calcium Carbonate [Tums Ultra Strength] 1,177 mg PO DAILY@1200 #30 tab.chew Furosemide [Lasix] 40 mg PO DAILY #30 tablet Metoprolol Succinate 12.5 mg PO DAILY@2100 #30 tab.er.24h Omeprazole 40 mg PO DAILY@0700 #30 capsule. Spironolactone [Aldactone] 25 mg PO DAILY #30 tablet Complete Home Medications List: Complete Home Medication List: Multivitamin [Multivitamins] 1 each PO DAILY 09/22/12 Atorvastatin Calcium [Lipitor] 20 mg PO Q72H 12/13/14 Cholecalciferol (Vitamin D3) [Vitamin D3] 2,000 unit PO DAILY 01/12/17 Acetaminophen [Tylenol Arthritis] 650 mg PO QID #120 tablet.er 03/11/17 Calcium Carbonate [Tums Ultra Strength] 1,177 mg PO DAILY@1200 #30 tab.chew Furosemide [Lasix] 40 mg PO DAILY #30 tablet 03/11/17 Metoprolol Succinate 12.5 mg PO DAILY@2100 #30 tab.er.24h 03/11/17 Omeprazole 40 mg PO DAILY@0700 #30 capsule. 03/11/17 Spironolactone [Aldactone] 25 mg PO DAILY #30 tablet 03/11/17
== END 2017-03-11 14:30 | disposition home or self-care (01) | DRG 292 ==
LOC: LAB 14:28 → OBSVTOIN 16:35 → MS 16:35
PROVIDERS: ADMIT Internal Medicine; ATTEND Internal Medicine
PROC: B246ZZZ Ultrasonography of Right and Left Heart (ICD-10-PCS; principal; 2017-03-06)
DX: I50.33 Acute on chronic diastolic (congestive) heart failure (principal); E87.1 Hypo-osmolality and hyponatremia; F05 Delirium due to known physiological condition; I34.0 Nonrheumatic mitral (valve) insufficiency; I35.1 Nonrheumatic aortic (valve) insufficiency; F41.8 Other specified anxiety disorders; R53.1 Weakness; D64.9 Anemia, unspecified; I48.2 Chronic atrial fibrillation; I10 Essential (primary) hypertension; E78.5 Hyperlipidemia, unspecified; M15.0 Primary generalized (osteo)arthritis; Z85.828 Personal history of other malignant neoplasm of skin

== ENCOUNTER 2017-05-11 13:00 | Observation (INO) | payer MEDICARE, BC ==
[2017-05-11 13:31] LABS: Hematocrit 30.3 % (37.0-47.0); Hemoglobin 9.9 gm/dL (12.5-16.0); Mean Cell Volume 83.5 fl (78-100); Mean Corpuscular Hemoglobin 27.3 pg (27-31); Mean Corpuscular Hgb Conc 32.7 g/dl (32-36); Neutrophil # 6.5 K/mm3 (1.3-6.0); Neutrophil % 77.7 % (42-75.0); Platelet Count 294 K/mm3 (150-450); Red Blood Count 3.63 M/mm3 (4.2-5.4); Red Cell Distribution Width 15.3 % (11.5-14.0); White Blood Count 8.3 K/mm3 (4.0-10.5)
[2017-05-11 13:44] LABS: INR 1.02 INR (0.90-1.10); Partial Thrombolplastin Time 28.5 Seconds (24-32); Prothrombin Time (Patient) 10.6 Seconds (9.4-11.4)
[2017-05-11 13:48] LABS: Troponin I 0.042 ng/ml (0.00-0.10)
[2017-05-11 13:52] LABS: Albumin * 3.4 gm/dl (3.4-5.0); Anion Gap 13.8 mmol/L (6.8-13.8); BUN/Creatinine Ratio 17.6 (9.0-21.6); Bilirubin, Total 1.7 mg/dL (0.0-1.1); CKMB 1.5 ng/mL (0.0-9.0); Ca. Corrected For Albumin 8.9 mg/dL (8.4-10.2); Calcium * 8.7 mg/dL (7.9-10.9); Carbon Dioxide 26.1 mmol/L (24-32.6); Potassium 3.9 mmol/L (3.4-4.6); Total Protein 6.6 gm/dL (6.2-8.2)
--- NOTE | 2017-05-11 14:06 | ERNOTE ---
Medical Problem HPI - Narrative Date of Service: 05/11/17 - General Chief Complaint: General Assessment Time Seen by Provider: 05/11/17 13:10 Source: patient Exam Limitations: no limitations - Immun/Allergies/Home Medications Immunizations: IMMUNIZATION HX Immunizations Up to Date Yes History of Influenza Vaccine Yes Hx Pneumococcal Vaccination Yes Allergies/Adverse Reactions: Allergies tramadol HCl [From Ultram] Adverse Reaction (Mild, Verified 05/11/17 13:14) DIZZINESS, NAUSEA Home Medications: HOME MEDICATIONS Multivitamin [Multivitamins] 1 each PO DAILY 09/22/12 [Last Taken 12/12/14] Atorvastatin Calcium [Lipitor] 20 mg PO Q72H 12/13/14 [Last Taken 12/12/14] Cholecalciferol (Vitamin D3) [Vitamin D3] 2,000 unit PO DAILY 01/12/17 [Last Taken Unknown] Acetaminophen [Tylenol Arthritis] 650 mg PO QID #120 tablet.er 03/11/17 [Last Taken Unknown] Calcium Carbonate [Tums Ultra Strength] 1,177 mg PO DAILY@1200 #30 tab.chew [Last Taken Unknown] Furosemide [Lasix] 40 mg PO DAILY #30 tablet 03/11/17 [Last Taken Unknown] Metoprolol Succinate 12.5 mg PO DAILY@2100 #30 tab.er.24h 03/11/17 [Last Taken Unknown] Omeprazole 40 mg PO DAILY@0700 #30 capsule.dr 03/11/17 [Last Taken Unknown] Spironolactone [Aldactone] 25 mg PO DAILY #30 tablet 03/11/17 [Last Taken Unknown] - History of Present History Narrative: 86-year-old female presents to the emergency room for waking off 10 pounds in the last 2 days. Patient's daughter states that she is weighed daily at the [facility] and has gained 10 pounds in the last 2 days. Patient has pitting edema up to her lower abdomen. States that patient is more short of breath at this time. She is not in respiratory distress at this time, but she is uncomfortable breathing when lying flat. Date (Duration): 05/11/17 Timing: getting worse Severity: moderate Review of Systems - Narrative Narrative: increase work of breathing while walking per daughter. increase swelling BLE - Review of Systems Constitutional: Present: See HPI EYE: Present: other - periorbital edema to lower lids ENT: Present: no symptoms reported Respiratory: Present: shortness of breath, orthopnea Cardiology: Present: See HPI Gastrointestinal/Abdominal: Present: no symptoms reported Genitourinary: Present: no symptoms reported Musculoskeletal: Present: no symptoms reported Skin: Present: See HPI Neurological: Present: no symptoms reported Endocrine: Present: no symptoms reported Hematologic/Lymphatic: Present: no symptoms reported Psych: Present: no symptoms reported All Other Systems: All systems neg except as marked - Patient's Past Medical History Patient History - Medical: Anemia, Anxiety, Arthritis, Depression, Osteoarthritis Patient History - Cardiac/Respiratory: Atrial Fibrillation, CHF, Hypertension, Hyperlipidemia Patient History - Cancer: Skin Patient History - Surgical Procedures: Cancer Surgery, Cataracts, Colonoscopy, EGD, T & A, Other Patient History - Other: None - Family History Mother Family History - Medical: , Arthritis Brother Family History - Medical: Family History - Cardiac/Respiratory: Myocardial Infarction Family History - Cancer: Colon Sister Family History - Medical: Children Family History - Medical: Diabetes Type 1, Diabetes Type 2 Father Family History - Medical: Family History - Cardiac/Respiratory: Myocardial Infarction Brother2 Family History - Medical: Other Family History - Cardiac/Respiratory: CVA/Stroke Family History - Cancer: Prostate sister2 Family History - Medical: Other Family History - Cancer: Breast Aunt Family History - Medical: Other Family History - Cancer: Breast - Social History Living Situations: prison Abuse History: No History of abuse Psych History: Hx of Anxiety, Hx of Depression Does anyone smoke in the home?: No Smoking Status: Former smoker Alcohol Use: none Drug Use: none - Immunizations Immunizations Up to Date: Yes Hx Pneumococcal Vaccination: Yes History of Influenza Vaccine: Yes Physical Exam - Physical Exam General Appearance: Present: wd/wn, alert, no apparent distress Head Exam: Present: normal inspection, no evidence of injury Eye Exam: Normal inspection: bilateral, PERRL: bilateral, EOMI: bilateral Ears, Nose, Throat: Present: normal ENT inspection, normal pharynx Neck: Present: normal inspection, nontender Respiratory: Present: no respiratory distress, normal breath sounds, no accessory muscle use, decreased breath sounds - at bases Cardiovascular/Chest: Present: regular rate, rhythm, no murmur, normal peripheral pulses, irregularly irregular - a- fib per EKG Peripheral Pulses: N=norm/S=strong/W=weak/B=bound/A=absent: Radial (R): Normal, Radial (L): Normal, Dorsalis-pedis (R): Normal, Dorsalis-pedis (L): Normal Gastrointestinal/Abdominal: Present: normal bowel sounds, nontender, nondistended, soft, no organomegaly Back Exam: Present: normal inspection, normal range of motion, no CVA tenderness , no vertebral tenderness Extremity Exam: Present: normal except -, pedal edema, extremity edema. Absent : decreased range of motion, calf tenderness, bony tenderness, joint redness, joint swelling Neurological Exam: Present: alert, oriented, normal mood/affect, no motor/ sensory deficits Skin Exam: Present: normal color, warm/dry Lymphatic Exam: Present: no adenopathy ED Progress - Results and Orders Patient's Lab Results:: I have reviewed the patient's lab results. - Vital Signs Patient's Vital Signs:: I have reviewed the patient's vital signs. Vital Signs: Vital Signs 05/11/17 13:11 Temperature 37.1 C Pulse Rate 81 Respiratory 22 H Rate Blood Pressure 134/67 O2 Sat by Pulse 97 Oximetry - EKG EKG: atrial fibrillation EKG read: Reviewed by me - X-Ray X-Ray #1 X-Ray: chest Interpretation: Reviewed by me X-ray Comments: pulm congestion. - Progress/Reassessment Chief Complaint: General Assessment Departure - Departure Clinical Impression: CHF exacerbation Qualifiers: Congestive heart failure type: unspecified congestive heart failure type Qualified Code(s): I50.9 - Heart failure, unspecified Disposition: [facility] Condition: Good Referrals: China Proctor MD [Primary Care Provider] -
[2017-05-11] MEDS ORDERED: FUROSEMIDE 10 MG/ML VIAL IV ONE (14:09)
[2017-05-11] MEDS ORDERED: FUROSEMIDE 10 MG/ML VIAL ONE (14:10)
[2017-05-11] MEDS ORDERED: BETA CAROTENE 25000 UNIT PO SCH (19:30)
--- NOTE | 2017-05-11 20:42 | HP ---
Chief Complaint - Chief Complaint Date of Service: 05/11/17 Time of Service: 20:32 Chief Complaint: Sudden weight gain, BLE pitting edema History of Present Illness: 86 years old female adm to the hospital from ER with reports of sudden weight gain over 2 days, shortness of breath, non productive cough, edema from the thigh down to foot and orthopnea. Pt stated she lives at the assisted living facility and is been weight daily. On day 2 she was told that she had gained 10lbs, and her s/s was getting worst so she was sent to the ER. Pt is a poor historian and additional information obtained from previous records. pt is unsure if there has been any adjustment in her medication or if attemot was made to diurese here before sending her to the ER. She was last hopsitalized for CHf exacerbation in February 2017 due to non-compliance. Medications modification was done before discharge.PMH significant for CHF, A-fib, anxiety , depression,hypertension, hyperlipidemia, CHF and GERD. In ER BNP 1588, CXR showed vascular congestion, lasix 20mg x1 was given.plan of care discussed with pt she verbalized understanding and agrees. 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; basal cell ca also removed from nose - unsure of year, Cataracts - bilat - , Colonoscopy - 2005 - [facility] - normal; 2014 - [facility] - sigmoid diverticulosis , EGD - [facility] - 11/2014 clotest negative, mod chronic inflammation and fibrosis; 02/2015 clotest negative, chronic gastritis., T & A - , Other - right corn toe removal in 1990 Patient History - Other: None - Family History Mother Family History - Medical: , Arthritis Brother Family History - Medical: Family History - Cardiac/Respiratory: Myocardial Infarction Family History - Cancer: Colon Sister Family History - Medical: Children Family History - Medical: Diabetes Type 1, Diabetes Type 2 Father Family History - Medical: Family History - Cardiac/Respiratory: Myocardial Infarction Family History - Cancer: No pertinent family hx Brother2 Family History - Medical: Other Family History - Cardiac/Respiratory: CVA/Stroke Family History - Cancer: Prostate sister2 Family History - Medical: Other Family History - Cancer: Breast Aunt Family History - Medical: Other Family History - Cardiac/Respiratory: History Unknown Family History - Cancer: Breast - Social History Living Situations: assisted living - [facility] Abuse History: No History of abuse Psych History: Hx of Anxiety, Hx of Depression Does anyone smoke in the home?: No Smoking Status: Former smoker Have you smoked in the past 12 months: No Do you dip or chew tobacco: No Patient requests Smoking Cessation Consult: No Initiate information on Smoking Cessation: No Alcohol Use: none Drug Use: none - Immunizations Immunizations Up to Date: Yes Hx Pneumococcal Vaccination: Yes History of Influenza Vaccine: Yes Review Of Systems (GEN) - Review of Systems Generalized/Overall Review: Present: Weakness EENTM: Present: No Symptoms Reported Respiratory: Present: Cough, Shortness of Breath, Orthopnea Cardiac: Present: Edema Abdominal: Present: Diarrhea Genitourinary: Present: Urgency, Frequency Musculoskeletal: Present: No Symptoms Reported Neurological: Present: Anxiety Skin: Present: No Symptoms Reported Endocrine: Present: No Symptoms Reported Immunizations: IMMUNIZATION HX Immunizations Up to Date Yes History of Influenza Vaccine Yes Hx Pneumococcal Vaccination Yes Allergies/Adverse Reactions: Allergies Allergy/AdvReac Type Severity Reaction Status Date / Time tramadol HCl [From Ultram] AdvReac Mild DIZZINESS, Verified 05/11/17 13:14 NAUSEA Home Medications: HOME MEDICATIONS Multivitamin [Multivitamins] 1 each PO DAILY 09/22/12 [Last Taken 12/12/14] Atorvastatin Calcium [Lipitor] 20 mg PO Q72H 12/13/14 [Last Taken 12/12/14] Cholecalciferol (Vitamin D3) [Vitamin D3] 2,000 unit PO DAILY 01/12/17 [Last Taken Unknown] Calcium Carbonate [Tums Ultra Strength] 1,177 mg PO DAILY@1200 #30 tab.chew [Last Taken Unknown] Furosemide [Lasix] 40 mg PO DAILY #30 tablet 03/11/17 [Last Taken Unknown] Omeprazole 40 mg PO DAILY@0700 #30 capsule. 03/11/17 [Last Taken Unknown] Spironolactone [Aldactone] 25 mg PO DAILY #30 tablet 03/11/17 [Last Taken Unknown] Acetaminophen [Tylenol Arthritis] 500 mg PO ACHS 05/11/17 [Last Taken Unknown] Aspirin [Aspirin EC] 81 mg PO DAILY 05/11/17 [Last Taken Unknown] Beta-Carotene [Beta Carotene] 25,000 unit PO Q30D 05/11/17 [Last Taken Unknown] Metoprolol Succinate 50 mg PO DAILY@2100 05/11/17 [Last Taken Unknown] Mirabegron [Myrbetriq] 25 mg PO DAILY 05/11/17 [Last Taken Unknown] [place] Oil/[place]-3 Fatty Acids [Fish Oil] 1,200 mg PO DAILY 05/11/17 [Last Taken Unknown] Sertraline HCl 25 mg PO DAILY 05/11/17 [Last Taken Unknown] Exam - Exam Vital Signs: Vital Signs - Last Taken Temp 36.4 C L 05/11/17 15:30 Pulse 78 05/11/17 15:30 Resp 20 05/11/17 15:30 BP 122/58 05/11/17 15:30 Pulse Ox 97 05/11/17 15:30 Constitutional: Present: Alert, Oriented x3, Cooperative, No distress, Elderly ENT Exam: Present: hearing grossly normal Eye Exam: bilateral eye: normal inspection Neck: Present: full range of motion Back Exam: Present: normal inspection Breasts: Present: Exam deferred Respiratory: Present: chest non-tender, no respiratory distress, no accessory muscle use, decreased breath sounds, crackles Cardiovascular/Chest: Present: normal peripheral pulses, irregularly irregular, edema Peripheral Pulses: carotid (R): 2+, carotid (L): 2+, dorsalis-pedis (R): 2+, dorsalis-pedis (L): 2+ Abdomen: Present: Normal bowel sounds, soft, nontender, nondistended /Rectal: Present: Exam deferred Extremity: Present: normal range of motion, lower extremity edema, slow capillary refill, swelling Skin Exam: Present: warm/dry Lymphatic: Present: no adenopathy Neurologic: Present: oriented x 3 Appearance: Present: appropriate appearance Eye contact: Present: cooperative, good eye contact Thoughts: Present: normal thought pattern Diagnostic Studies: Laboratory Results WBC 8.3 K/mm3 (4.0-10.5) 05/11/17 13:20 RBC 3.63 M/mm3 (4.2-5.4) L 05/11/17 13:20 Hgb 9.9 gm/dL (12.5-16.0) L 05/11/17 13:20 Hct 30.3 % (37.0-47.0) L 05/11/17 13:20 MCV 83.5 fl (78-100) 05/11/17 13:20 MCH 27.3 pg (27-31) 05/11/17 13:20 MCHC 32.7 g/dl (32-36) 05/11/17 13:20 RDW 15.3 % (11.5-14.0) H 05/11/17 13:20 Plt Count 294 K/mm3 (150-450) 05/11/17 13:20 MPV 10.0 fl (6.0-9.5) H 05/11/17 13:20 Immature Gran % (Auto) 0.50 % (0.001-0.429) H 05/11/17 13:20 Immature Gran # (Auto) 0.04 K/mm3 (0.000-0.0310) H 05/11/17 13:20 Neutrophils % 77.7 % (42-75.0) H 05/11/17 13:20 Lymphocytes % 10.1 % (20-51) L 05/11/17 13:20 Monocytes % 9.6 % (0.0-9) H 05/11/17 13:20 Eosinophils % 1.1 % (0.0-3.0) 05/11/17 13:20 Basophils % 1.0 % (0.0-1.0) 05/11/17 13:20 Nucleated RBC % 0.0 k/mm3 (0-1) 05/11/17 13:20 Neutrophils # 6.5 K/mm3 (1.3-6.0) H 05/11/17 13:20 Lymphocytes # 0.8 k/mm3 (1.5-3.5) L 05/11/17 13:20 Monocytes # 0.8 k/mm3 (0.0-1.0) 05/11/17 13:20 Eosinophils # 0.1 k/mm3 (0.0-0.7) 05/11/17 13:20 Absolute Basophils 0.1 k/mm3 (0.0-0.1) 05/11/17 13:20 PT 10.6 Seconds (9.4-11.4) 05/11/17 13:20 INR (Anticoag Therapy) 1.02 INR (0.90-1.10) 05/11/17 13:20 PTT ([place]son) 28.5 Seconds (24-32) 05/11/17 13:20 Sodium 131 mmol/L (132-142) L 05/11/17 13:20 Plasma Sodium 132 mmol/L (130-142) 05/11/17 13:20 Potassium 3.9 mmol/L (3.4-4.6) 05/11/17 13:20 Chloride 95 mmol/L (97-106) L 05/11/17 13:20 Carbon Dioxide 26.1 mmol/L (24-32.6) 05/11/17 13:20 Anion Gap 13.8 mmol/L (6.8-13.8) 05/11/17 13:20 BUN 12 mg/dL (3-23) 05/11/17 13:20 Creatinine 0.68 mg/dL (0.4-1.4) 05/11/17 13:20 Est GFR (Non-Af Amer) 87 mL/min (60-130) 05/11/17 13:20 BUN/Creatinine Ratio 17.6 (9.0-21.6) 05/11/17 13:20 Random Glucose 133 mg/dL (70-110) H 05/11/17 13:20 Calcium 8.7 mg/dL (7.9-10.9) 05/11/17 13:20 Calcium Adj for Albumin 8.9 mg/dL (8.4-10.2) 05/11/17 13:20 Total Bilirubin 1.7 mg/dL (0.0-1.1) H 05/11/17 13:20 AST 22 U/L (0-48) 05/11/17 13:20 ALT 23 U/L (19-67) 05/11/17 13:20 Alkaline Phosphatase 104 U/L (50-170) 05/11/17 13:20 Creatine Kinase 64 U/L (0-259) 05/11/17 13:20 CK-MB (CK-2) 1.5 ng/mL (0.0-9.0) 05/11/17 13:20 CK-MB (CK-2) Rel Index 2.3 (0.0-3.6) 05/11/17 13:20 Troponin I 0.042 ng/ml (0.00-0.10) 05/11/17 13:20 B-Natriuretic Peptide 1588 pg/mL (5-550) H 05/11/17 13:20 Total Protein 6.6 gm/dL (6.2-8.2) 05/11/17 13:20 Albumin 3.4 gm/dl (3.4-5.0) 05/11/17 13:20 CXR: Vascular congestion Assessment/Plan - Narrative Narrative: CHF exacerbation: report of 10lb sudden weight gain in 2 days CXR: showed vascular congestion Most recent Echo: mild LVH with EF 60-65% mod Lasix 20mg x1 given in ER Aldactone 25mg given at assisted living Weight pt daily [place] cath for correct I/O Low sodium diet BNP 1588---> A-fib Pt with chronic history and also Seen on EKG No anticoagulants due to GI bleed in 2014 Continue on telemetry monitoring Chronic hyponatremia possible due to diuresis and CHf exac On adm Na+ 131 at pt baseline Monitor BMP in AM Anemia- likely due to hemodilution of the CHF 03/10/17 hgb 12.0 --->On adm Hgb 9.9 Chronic venous insufficiency aggravating hyponatremia and lower extremity edema responding well to iv lasix and po spironlactone. elevate legs as much as possible will also add tubigrip to lower extremities to aid in venous return. Code status:DNR DVT PPx:Encourage early ambulation and Teds/ SCD GI ppx: Continue with protonix Previous record reviewed Time 50 minutes - Assessment/Plan (1) CHF exacerbation Problem: Acute Qualifiers: Congestive heart failure type: unspecified congestive heart failure type Qualified Code(s): I50.9 - Heart failure, unspecified (2) Anxiety and depression Problem: Chronic (3) Arthritis Problem: Chronic (4) Atrial fibrillation Problem: Chronic Qualifiers: (5) Hyperlipidemia Problem: Chronic Qualifiers: (6) Hypertension Problem: Chronic Qualifiers:
[2017-05-11] MEDS: ACETAMINOPHEN 500 MG TABLET PO SCH (20:56)
[2017-05-11] MEDS ORDERED: METOPROLOL SUCCINATE 25 MG TABLET.SA PO SCH (21:00)
[2017-05-12] MEDS ORDERED: FUROSEMIDE 10 MG/ML VIAL ONE (05:51)
[2017-05-12] MEDS: FUROSEMIDE 10 MG/ML VIAL IV SCH ×2 (05:55→08:37)
[2017-05-12 06:27] LABS: Anion Gap 11.5 mmol/L (6.8-13.8); BUN/Creatinine Ratio 17.5 (9.0-21.6); Calcium * 8.8 mg/dL (7.9-10.9); Carbon Dioxide 29.2 mmol/L (24-32.6); Estimated Creat Clear 57.7; Potassium 3.7 mmol/L (3.4-4.6)
[2017-05-12] MEDS ORDERED: FUROSEMIDE 10 MG/ML VIAL IV ONE (06:48)
[2017-05-12 06:53] VITALS: BP 133/76
[2017-05-12] MEDS ORDERED: PANTOPRAZOLE SODIUM 40 MG TABLET.EC PO SCH (07:00)
[2017-05-12] MEDS: ACETAMINOPHEN 500 MG TABLET PO SCH ×2 (07:08→10:53)
[2017-05-12] MEDS ORDERED: SPIRONOLACTONE 25 MG TABLET PO SCH (09:00)
[2017-05-12] MEDS ORDERED: SALMON OIL/OMEGA-3 FATTY ACIDS 1,200 MG CAPSULE PO SCH (09:00)
[2017-05-12] MEDS ORDERED: OMEGA-3 FATTY ACIDS 1 CAP CAPSULE PO SCH (09:00)
[2017-05-12] MEDS ORDERED: MIRABEGRON 25 MG PO SCH (09:00)
[2017-05-12] MEDS ORDERED: SERTRALINE HCL 50 MG TABLET PO SCH (09:00)
[2017-05-12] MEDS ORDERED: CHOLECALCIFEROL 1,000 UNIT CAPSULE PO SCH (09:00)
[2017-05-12] MEDS ORDERED: ASPIRIN 81 MG TABLET.DR PO SCH (09:00)
[2017-05-12] MEDS ORDERED: MULTIVIT-MIN/FA/LYCOPEN/LUTEIN 1 TAB TABLET PO SCH (09:00)
--- NOTE | 2017-05-12 09:50 | DS ---
(1) Heart failure, diastolic, with acute decompensation Problem: Acute (2) Heart failure with preserved left ventricular function (HFpEF) Problem: Chronic Description of Stay: ADMISSION DATE: 05/11/2017 DISCHARGE DATE: 05/12/2017 ADMISSION HPI: 86 years old female adm to the hospital from ER with reports of sudden weight gain over 2 days, shortness of breath, non productive cough, edema from the thigh down to foot and orthopnea. Pt stated she lives at the assisted living facility and is been weight daily. On day 2 she was told that she had gained 10lbs, and her s/s was getting worst so she was sent to the ER. Pt is a poor historian and additional information obtained from previous records. pt is unsure if there has been any adjustment in her medication or if attemot was made to diurese here before sending her to the ER. She was last hopsitalized for CHf exacerbation in February 2017 due to non-compliance. Medications modification was done before discharge.PMH significant for CHF, A-fib, anxiety , depression,hypertension, hyperlipidemia, CHF and GERD. In ER BNP 1588, CXR showed vascular congestion, lasix 20mg x1 was given.plan of care discussed with pt she verbalized understanding and agrees. HOSPITAL COURSE: The patient was admitted to observation for acute decompensation of chronic diastolic heart failure. The patient was given IV lasix which she responded well to and she was over -3500mL net negative during her hospital stay. She was feeling better and nearly back to her baseline at the time of discharge. The patient's home lasix dose was increased as below and I have ordered for the patient to have a BMP in a couple days to monitor kidney function and electrolytes, specifically her potassium level. Patient will follow-up with her primary care provider, Dr. Proctor, within 1 week. The patient was instructed to keep a log of her daily standing weight and bring this with her to her follow -up appointment. The patient was discharged back to [facility] in stable condition. FOLLOW-UP APPOINTMENTS: -PCP, Dr. Proctor, within 1 week -Check BMP on 05/14/2017 NEW OR CHANGED MEDICATIONS: Lasix 40MG PO BID at 0800 and 1400 DISCONTINUED MEDICATIONS: NONE RADIOLOGY REPORTS: CXR ON ADMISSION CONSISTENT WITH EARLY CHF. Procedures Performed: none Results and Findings: Laboratory Tests 05/11/17 05/11/1705/12/17 13:20 13:20 06:05 Hgb 9.9 L Hct 30.3 L MCV 83.5 Sodium 131 L 135 Chloride 95 L 98 Total Bilirubin 1.7 H Creatine Kinase 64 CK-MB (CK-2) 1.5 CK-MB (CK-2) Rel Index 2.3 Troponin I 0.042 B-Natriuretic Peptide 1588 H Discharge Disposition: [facility] Disposition: [facility] Condition: Stable Discharge Activity: Activity as tolerated Discharge Diet: Low salt Referrals: China Proctor MD [Primary Care Provider] - Problem Oriented Discharge Instructions to Patient/Family: CHF Patient Instructions Additional Patient Instructions (free text): -Follow-up with PCP, Dr. Proctor, within 1 week -Check daily standing weight LAB- [facility] 05/14 Prescriptions (Any new or edited meds): Furosemide [Lasix] 40 mg PO BID #60 tablet Complete Home Medications List: Complete Home Medication List: Multivitamin [Multivitamins] 1 each PO DAILY 09/22/12 Atorvastatin Calcium [Lipitor] 20 mg PO Q72H 12/13/14 Cholecalciferol (Vitamin D3) [Vitamin D3] 2,000 unit PO DAILY 01/12/17 Calcium Carbonate [Tums Ultra Strength] 1,177 mg PO DAILY@1200 #30 tab.chew Omeprazole 40 mg PO DAILY@0700 #30 capsule. 03/11/17 Spironolactone [Aldactone] 25 mg PO DAILY #30 tablet 03/11/17 Acetaminophen [Tylenol Arthritis] 500 mg PO ACHS 05/11/17 Aspirin [Aspirin EC] 81 mg PO DAILY 05/11/17 Beta-Carotene [Beta Carotene] 25,000 unit PO Q30D 05/11/17 Metoprolol Succinate 50 mg PO DAILY@2100 05/11/17 Mirabegron [Myrbetriq] 25 mg PO DAILY 05/11/17 [place] Oil/[place]-3 Fatty Acids [Fish Oil] 1,200 mg PO DAILY 05/11/17 Sertraline HCl 25 mg PO DAILY 05/11/17 Furosemide [Lasix] 40 mg PO BID #60 tablet 05/12/17 Amb Orders for Discharge: Basic Metabolic Panel Time Frame: 05/14/17, Location: Determined By Patient
[2017-05-12] MEDS ORDERED: CALCIUM CARBONATE 500 MG TAB.CHEW PO SCH (12:00)
[2017-05-12] MEDS ORDERED: METOPROLOL SUCCINATE 50 MG TABLET.SA PO SCH (21:00)
[2017-05-13] MEDS ORDERED: ROSUVASTATIN CALCIUM 10 MG TABLET PO SCH (21:00)
== END 2017-05-12 13:28 | disposition home or self-care (01) ==
LOC: ER 13:00 → MS 14:32
PROVIDERS: ADMIT Internal Medicine; ATTEND Internal Medicine
PROC: 0T9B70Z Drainage of Bladder with Drainage Device, Via Natural or Artificial Opening (ICD-10-PCS; principal; 2017-05-11)
DX: I50.33 Acute on chronic diastolic (congestive) heart failure (principal); I48.2 Chronic atrial fibrillation; E87.1 Hypo-osmolality and hyponatremia; I10 Essential (primary) hypertension; I87.2 Venous insufficiency (chronic) (peripheral); E78.5 Hyperlipidemia, unspecified; F41.8 Other specified anxiety disorders; M19.90 Unspecified osteoarthritis, unspecified site; Z87.891 Personal history of nicotine dependence
CPT/HCPCS: 36415; 51702; 71010; 80048; 80053; 82550; 82553; 83880; 84484; 85025; 85610; 85730; 87081; 93005; 96374; 96376; 99284; G0378

== ENCOUNTER 2017-05-18 19:51 | Emergency (ER) | payer MEDICARE, BC ==
[2017-05-18 20:18] LABS: Hematocrit 32.9 % (37.0-47.0); Hemoglobin 10.5 gm/dL (12.5-16.0); Mean Cell Volume 83.1 fl (78-100); Mean Corpuscular Hemoglobin 26.5 pg (27-31); Mean Corpuscular Hgb Conc 31.9 g/dl (32-36); Mean Platelet Volume 9.6 fl (6.0-9.5); Neutrophil # 4.4 K/mm3 (1.3-6.0); Neutrophil % 67.3 % (42-75.0); Platelet Count 339 K/mm3 (150-450); Red Blood Count 3.96 M/mm3 (4.2-5.4); Red Cell Distribution Width 15.4 % (11.5-14.0); White Blood Count 6.5 K/mm3 (4.0-10.5)
[2017-05-18 20:39] LABS: Calcium * 9.4 mg/dL (7.9-10.9); Carbon Dioxide 29.5 mmol/L (24-32.6); Estimated Creat Clear 48.2; Potassium 3.5 mmol/L (3.4-4.6)
--- NOTE | 2017-05-18 20:48 | ERNOTE ---
Medical Problem HPI - Narrative Date of Service: 05/18/17 - General Chief Complaint: General Assessment Time Seen by Provider: 05/18/17 20:01 Source: patient Exam Limitations: no limitations - Immun/Allergies/Home Medications Immunizations: IMMUNIZATION HX Immunizations Up to Date Yes History of Influenza Vaccine Yes Hx Pneumococcal Vaccination Yes Allergies/Adverse Reactions: Allergies tramadol HCl [From Ultram] Adverse Reaction (Mild, Verified 05/11/17 13:14) DIZZINESS, NAUSEA Home Medications: HOME MEDICATIONS Multivitamin [Multivitamins] 1 each PO DAILY 09/22/12 [Last Taken 12/12/14] Atorvastatin Calcium [Lipitor] 20 mg PO Q72H 12/13/14 [Last Taken 12/12/14] Cholecalciferol (Vitamin D3) [Vitamin D3] 2,000 unit PO DAILY 01/12/17 [Last Taken Unknown] Calcium Carbonate [Tums Ultra Strength] 1,177 mg PO DAILY@1200 #30 tab.chew [Last Taken Unknown] Omeprazole 40 mg PO DAILY@0700 #30 capsule.dr 03/11/17 [Last Taken Unknown] Spironolactone [Aldactone] 25 mg PO DAILY #30 tablet 03/11/17 [Last Taken Unknown] Acetaminophen [Tylenol Arthritis] 500 mg PO ACHS 05/11/17 [Last Taken Unknown] Aspirin [Aspirin EC] 81 mg PO DAILY 05/11/17 [Last Taken Unknown] Metoprolol Succinate 100 mg PO BID 05/11/17 [Last Taken Unknown] Mirabegron [Myrbetriq] 25 mg PO DAILY 05/11/17 [Last Taken Unknown] [place] [employer]/[place]-3 Fatty Acids [Fish Oil] 1,200 mg PO DAILY 05/11/17 [Last Taken Unknown] Sertraline HCl 25 mg PO DAILY 05/11/17 [Last Taken Unknown] Furosemide [Lasix] 60 mg PO BID 05/18/17 [Last Taken Unknown] - History of Present History Narrative: 87 year old that complains of not being able to stay dry and urinary frequency. However the urinary frequency has been occurring for 2 months or more. She notes that she has had to dab urine several times today. Denies any back or chest pain, dysuria, fevers or chills. Notes also swelling of both feet that has been occurring for a couple of years. Denies any new dyspnea and has been walking normally. She does not use oxygen at home and does not complain of current shortness of breath. Date (Duration): 05/18/17 Time (Timing): 20:46 Timing: constant Severity: mild Modifying Factors - (Improves): Present: other - none Modifying Factors - (Worsens): Present: other - none Review of Systems - Review of Systems Constitutional: Present: no symptoms reported EYE: Present: no symptoms reported ENT: Present: no symptoms reported Respiratory: Present: no symptoms reported Cardiology: Present: no symptoms reported, See HPI Genitourinary: Present: See HPI Musculoskeletal: Present: no symptoms reported Skin: Present: no symptoms reported Neurological: Present: no symptoms reported Endocrine: Present: no symptoms reported Hematologic/Lymphatic: Present: no symptoms reported Psych: Present: no symptoms reported - Patient's Past Medical History Patient History - Medical: Anemia, Anxiety, Arthritis, Depression, GERD, Osteoarthritis, Other Patient History - Cardiac/Respiratory: Atrial Fibrillation, CHF, Hypertension, Hyperlipidemia Patient History - Cancer: Skin Patient History - Surgical Procedures: Cancer Surgery, Cataracts, Colonoscopy, EGD, T & A, Other Patient History - Other: None - Family History Mother Family History - Medical: , Arthritis Brother Family History - Medical: Family History - Cardiac/Respiratory: Myocardial Infarction Family History - Cancer: Colon Sister Family History - Medical: Children Family History - Medical: Diabetes Type 1, Diabetes Type 2 Father Family History - Medical: Family History - Cardiac/Respiratory: Myocardial Infarction Family History - Cancer: No pertinent family hx Brother2 Family History - Medical: Other Family History - Cardiac/Respiratory: CVA/Stroke Family History - Cancer: Prostate sister2 Family History - Medical: Other Family History - Cancer: Breast Aunt Family History - Medical: Other Family History - Cardiac/Respiratory: History Unknown Family History - Cancer: Breast - Social History Living Situations: assisted living - [place] Abuse History: No History of abuse Psych History: Hx of Anxiety, Hx of Depression Does anyone smoke in the home?: No Smoking Status: Never smoker Alcohol Use: none Drug Use: none - Immunizations Immunizations Up to Date: Yes Hx Pneumococcal Vaccination: Yes History of Influenza Vaccine: Yes Physical Exam - Physical Exam General Appearance: Present: no apparent distress Head Exam: Present: normal inspection Eye Exam: Normal inspection: bilateral Ears, Nose, Throat: Present: normal ENT inspection Neck: Present: normal inspection Respiratory: Present: no respiratory distress, normal breath sounds Cardiovascular/Chest: Present: regular rate, rhythm Gastrointestinal/Abdominal: Present: nontender, nondistended Back Exam: Present: normal inspection Extremity Exam: Present: pedal edema - bilaterally Neurological Exam: Present: alert, oriented, normal mood/affect Skin Exam: Present: normal color, warm/dry ED Progress - Results and Orders Patient's Lab Results:: I have reviewed the patient's lab results. - Vital Signs Patient's Vital Signs:: I have reviewed the patient's vital signs. Vital Signs: Vital Signs 05/18/17 20:01 Temperature 37.0 C Pulse Rate 88 Respiratory 18 Rate Blood Pressure 141/72 O2 Sat by Pulse 97 Oximetry - EKG EKG read: Interp. by me EKG Comments: sinus, rate of 84, RBBB, no change from the previous EKG - Progress/Reassessment Chief Complaint: General Assessment Progress:: Unchanged Progress Note-Subjective: 05/25/17 21:06 Hemodynamically stable. Departure Clinical Impression: Urinary frequency - Departure Disposition: Home self-care Condition: Fair Instructions: Urinary Frequency, Adult Print Language: Salvadorean Additional Instructions: Take an extra dose of lasix in the morning. You need to see your doctor next week for follow up. Referrals: China Proctor MD [Primary Care Provider] -
[2017-05-18 20:52] LABS: Urine Appearance Slightly Cloudy; Urine Bilirubin Negative (NEGATIVE); Urine Blood Negative /ul (NEGATIVE); Urine Color Yellow; Urine Ketone Negative (NEGATIVE); Urine Nitrite Negative (NEGATIVE); Urine Protein Negative (NEGATIVE); Urine Urobilinogen Normal (NORMAL)
[2017-05-18 20:55] LABS: Urine Bacteria TRACE; Urine RBC None Seen /hpf (0-5); Urine WBC 0-5 /hpf (0-5)
[2017-05-18 21:38] VITALS: BP 135/78
== END 2017-05-18 22:21 | disposition home or self-care (01) ==
LOC: ER 19:51
DX: R35.0 Frequency of micturition (principal); D64.9 Anemia, unspecified; M19.90 Unspecified osteoarthritis, unspecified site; K21.9 Gastro-esophageal reflux disease without esophagitis; I48.91 Unspecified atrial fibrillation; Z79.01 Long term (current) use of anticoagulants; I50.9 Heart failure, unspecified; I10 Essential (primary) hypertension; F41.8 Other specified anxiety disorders; E78.5 Hyperlipidemia, unspecified; Z85.828 Personal history of other malignant neoplasm of skin